=== PATIENT | female | born 1960 | race Caucasian/White ===

== ENCOUNTER → 2016-07-26 | Outpatient (CLI) | payer OTHER ==
[2016-07-26 13:42] LABS: HEMOGLOBIN 12.9 g/dL (12.2-16.2); LYMPH # 1.8 K/mm3 (0.7-4.5); LYMPH % 37.3 % (10-50.0)
[2016-07-26 14:01] LABS: BUN 15 mg/dL (7-18)
[2016-07-26 14:07] LABS: GFR (ESTIMATED) 104 ML/MIN (59-)
== END ==
LOC: CARL-LAB 08:07
PROVIDERS: Internal Medicine Adolescent Medicine
DX: N95.9 Unspecified menopausal and perimenopausal disorder (principal); Z00.00 Encounter for general adult medical examination without abnormal findings